=== PATIENT | female | born 1945 | race Caucasian/White ===

== ENCOUNTER 2020-06-06 00:37 | Emergency (ER) | payer MEDICARE ==
[~2020-06-06] VITALS: Ht 144.8 cm; Wt 59.0 kg
[2020-06-06] MEDS ORDERED: TDAP DIPH,PERTUSS,TET VAC/PF 0.5 ML DISP.SYRIN IM ONE ×2 (01:00)
--- NOTE | 2020-06-06 01:50 | NUR ---
Steri-strip applied to skin tear, ice pack provided for neck discomfort.
--- NOTE | 2020-06-06 02:00 | NUR ---
Patient requesting to rest for a little prior to being discharged home.
--- NOTE | 2020-06-06 03:44 | NUR ---
Patient discharged to home in stable condition. Written and verbal after care instructions given. Patient verbalizes understanding of instructions. Stressed follow up or return to ER for worsening s/s. Patient ambulated with steady gait. All belongings returned to patient prior to departure.
[2020-06-06 03:45] VITALS: BP 118/67
== END 2020-06-06 03:45 | disposition home or self-care (01) ==
LOC: ER 00:52
DX: S01.81XA Laceration without foreign body of other part of head, initial encounter (principal); S13.9XXA Sprain of joints and ligaments of unspecified parts of neck, initial encounter; W01.198A Fall on same level from slipping, tripping and stumbling with subsequent striking against other object, initial encounter; Y92.89 Other specified places as the place of occurrence of the external cause; M47.812 Spondylosis without myelopathy or radiculopathy, cervical region
CPT/HCPCS: 70450; 72125; 90715; A4217; A4663

== ENCOUNTER 2020-10-15 09:55 | Outpatient (CLI) | payer MEDICARE | END 2020-10-15 23:59 | disposition home or self-care (01) | LOC: XRAY 09:55 | PROVIDERS: ATTEND Internal Medicine | DX: Z01.818 Encounter for other preprocedural examination (principal) | CPT/HCPCS: 93005 ==